=== PATIENT | female | born 1990 | race Caucasian/White ===

== ENCOUNTER 2020-09-26 15:26 | Observation (INO) | payer MEDICAID ==
[~2020-09-26] VITALS: Ht 157.5 cm; Wt 108.9 kg
== END 2020-09-26 19:00 | disposition home or self-care (01) ==
LOC: 8 EST LDRP 15:26
PROVIDERS: ADMIT Specialist; ATTEND Specialist
DX: O46.93 Antepartum hemorrhage, unspecified, third trimester (principal); Z3A.39 39 weeks gestation of pregnancy
CPT/HCPCS: 59025; 76805; 76818; G0378; 99281